=== PATIENT | female | born 1935 | race Caucasian/White ===

== ENCOUNTER 2022-10-13 10:48 | Emergency (ER) | payer MEDICARE, SELFPAY ==
[2022-10-13 11:03] VITALS: BP 143/52; BP 168/72; PULSE 92; PULSE 98; RESP 16; TEMP 37.3; O2SAT 100; O2SAT 99; BMI 26.2
--- OUTSIDE RECORDS SUMMARY | 2022-10-13 11:38 | XMS_ITS | Continuity of Care Document ---
Author Name Unknown Organization [facility] Address Unknown Care Team Providers Care Power Plant Assistant Name Role Phone Andres FERNÁNDEZ, Alex Lewis Primary Care Physician Encounter [facility] Date(s): 01/06/22 - 02/05/22 [facility] Allergies, Adverse Reactions, Alerts No Known Allergies
--- OUTSIDE RECORDS SUMMARY | 2022-10-13 11:38 | XMS_ITS | Continuity of Care Document ---
Author Name Unknown Organization [facility] Address [address] [facility] [address] [facility], [address], [address] [place] [id number] Care Team Providers Care Filtration Operator Name Role Phone Alex Campos MD Primary Care Physician Encounter [facility] Date(s): 01/10/22 - 03/22/22 [facility] [address] [facility] [address] [facility], [address]rd Floor, [address] [place] [id number]- Attending Physician: Elisa Oviedo MD Admitting Physician: Elisa Oviedo MD Referring Physician: Alex Campos MD Allergies, Adverse Reactions, Alerts No Known Allergies Patient Care team information Personnel Name: Alex Campos MD Address: Address: [address] [place] [id number]
[2022-10-13 12:40] VITALS: BP 146/53; PULSE 74; RESP 12; TEMP 37.1; O2SAT 100
--- NOTE | 2022-10-13 12:40 | PC.NURSE ---
patient talking in full complete sentences. no SOB. NSR on the monitor. call kuhn within reach
--- NOTE | 2022-10-13 13:01 | ED_ITS ---
HPI - General Adult General Chief complaint: Allergic Reaction Stated complaint: Bee sting allergic reaction per EMS Time Seen by Provider: 10/13/22 12:06 Source: patient Mode of arrival: ambulatory Limitations: no limitations History of Present Illness HPI narrative: 87-year-old female presents to ED for evaluation after bee sting. Patient states she has slight tingling in her lips that resolved immediately after taking 2 injections of epinephryine. Patient denies any actual swelling of lips, tongue, shortness of breath, sensation of throat closing, rash, hives, eye swelling, fever, or chills. Patient denies any chest pain, shortness of breath, abdominal pain, neck swelling, fever, chills, weakness, dizziness, or any other concerning symptoms. Related Data Previous Rx's Medication Instructions Recorded diphenhydramine HCl 25 mg capsule 25 mg PO TID PRN allergic reaction 10/13/22 (Benadryl) 7 days #21 caps famotidine 20 mg tablet (Pepcid) 20 mg PO BID 7 days #14 tabs 10/13/22 prednisone 20 mg tablet 40 mg PO DAILY 5 days #10 tabs 10/13/22 Allergies Allergy/AdvReac Type Severity Reaction Status Date / Time bee pollen [bee stings] Allergy Anaphylaxis Verified 10/13/22 13:05 Review of Systems Review of Systems: Evaluation for bee sting presently asymptomatic Yes all other systems are reviewed and are negative [facility] Social History Social History Advance Directives: Yes Advance Directives Information Provided: No Advance Directives on File: No Physical Exam ED Vital Signs: Vital Signs - 24 hr 10/13/22 11:03 10/13/22 12:40 Temperature 99.2 F 98.8 F Pulse Rate 92 74 Respiratory Rate 16 12 Blood Pressure 143/52 H 146/53 H Pulse Oximetry 99 100 Oxygen Delivery Method Room Air Room Air BMI result Body Mass Index 26.2 Const General: cooperative, healthy appearing, comfortable, no acute distress, well developed, alert, awake and Physically active Orientation/consciousness: oriented to person, oriented to place, oriented to time and patient oriented x3 HENMT Other: Negative for lip swelling, tongue swelling, or uvular swelling. Patient speaking in full sentences negative for any drooling, change in voice, or hoarseness. Negative for hives on face or rest of body. Patient well-ap pearing. O2 saturation normal to 100% maintained on room air Head: Yes normal to inspection, Yes No palpable skull fracture present, Yes normocephalic and Yes atraumatic Throat: Yes posterior oropharynx normal, Yes tonsils normal and Yes uvula midline Eyes General: appearance normal, both eyes and all related structures Neck Neck: Yes normal visual inspection, Yes full ROM, Yes no lymphadenopathy, Yes no meningeal signs, Yes trachea midline, Yes supple, No anterior neck swelling and No tender Chest Chest palpation & inspection: normal inspection of the chest and normal palpation of entire chest wall Resp Effort & Inspection: normal respiratory effort and able to speak in complete sentences Auscultation: clear to auscultation bilaterally Cardio Jugular venous distension: no JVD Heart sounds: S1 normal heart sound present and S2 normal heart sound present GI Inspection: Yes normal to inspection and No abdominal wall ecchymosis Palpation (GI): Soft to palpation, not firm, nontender, no guarding and not rigid General: No CVA tenderness and Yes no CVA tenderness Back/Spine/Pelvis Back: no CVA tenderness, No CVA tenderness and No back tenderness Skin General skin exam: no rashes or lesions noted and elasticity normal Neuro General: oriented to person, oriented to place, oriented to time, patient oriented x3, gait normal, tone normal, moves all extremities, Normal light touch and pain sensation, no meningeal signs, no focal motor deficits, CN's II-XI intact bilaterally and normal sensation to monofilament Extrem Other: bilateral lower extremities negative for any swelling, pitting edmea, or calf tenderness. General: Yes normal to inspection and Yes full ROM Psych Appearance: grossly normal, well kempt and not disheveled Course Course Course Narrative: Patient well-appearing. Vital signs stable. Reevaluation(s) Reevaluation #1: Presently no indication of anaphylaxis. Whole-body evaluating negative for rash on body and negative signs of anaphylaxis. Due to known it has allergic and anaphylactic reaction to bee sting patient will be discharged with prednisone Benadryl and Pepcid. Negative for signs of cellulitis. Time: 16:53 Medical Decision Making Medical Decision Making [facility] Narrative: 87-year-old female presents to ED for evaluation after bee sting. Patient denies any chest pain, shortness of breath, abdominal pain, swelling of extremities lips, hives, swelling, or sensation of throat closing. No further intervention needed. Vital signs stable. Differential Diagnosis Differential Diagnoses: The differential diagnosis associated with the presentation includes (Allergic reaction, cellulitis, anaphylaxis,) Admission/Observation Consideration of admission/observation: Escalation of care including admission/observation considered Prescription Management I considered prescription management with: Other (Prednisone, Benadryl, and Pepcid) Discharge Plan Discharge Clinical Impression: Bee sting, Allergic reaction to bee sting Patient Disposition: Home, Self-Care Instructions: Insect Bite or Sting (ED), General Allergic Reaction (ED) Additional Instructions: Return to the ED immediately if he have lip swelling, tongue swelling, shortness of breath, sensation of throat closing, fever, chills, rash, hives, redness, or any other concerning symptoms. Use your EpiPen if needed for anyphylaxis. You will be given Benadryl prednisone and Pepcid to prevent further reaction. Please follow-up with primary care provider Prescriptions: New prednisone 20 mg tablet 40 mg PO DAILY 5 Days Qty: 10 0RF famotidine [Pepcid] 20 mg tablet 20 mg PO BID 7 Days Qty: 14 0RF diphenhydramine HCl [Benadryl] 25 mg capsule 25 mg PO TID PRN (Reason: allergic reaction) 7 Days Qty: 21 0RF Rx Instructions: side effect is drowsiness. Interventions: ED Discharge Assessment Last Done: 10/13/22 13:12 Discharge Date/Time: 10/13/22 13:12 Print Language: Thai
== END 2022-10-13 13:12 | disposition home or self-care (01) ==
PROVIDERS: Emergency Provider Emergency Medicine Emergency Medical Services
DX: T63.441A Toxic effect of venom of bees, accidental (unintentional), initial encounter (principal); Y92.9 Unspecified place or not applicable; Z79.899 Other long term (current) drug therapy
CPT/HCPCS: 99283

== ENCOUNTER 2023-12-17 10:56 | Outpatient (AMB) | payer MEDICARE, SELFPAY ==
[2023-12-17 11:05] VITALS: BP 114/58; PULSE 73; O2SAT 98
--- NOTE | 2023-12-17 11:05 | A.OFFVIS_ITS ---
Vital Signs 12/17/23 11:05 Height 5 ft 2 in BMI Reason not done Patient refused/unable BP 114/58 L Blood Pressure Location Rt brachial Position Sitting Pulse 73 Pulse Source Pulse Oximeter Pulse Oximetry (%) 98 Oxygen Delivery Method Room Air Intake Visit Reasons: RA/CM Intake Note: New pt presents today for RA consult, referred by Dafne Lipscomb. Previously followed by Dr Wilson, saw him last week. She is here because she is not happy with the care she is receiving. Occasional hand pain and swelling. Has tried MTX, hydroxychloroquine, Enbrel, leflunomide, injections, Rituximab x1 (May 2023) [employer] Required: No Accompanied by: Self / Same As Patient Allergies bee pollen [bee stings] Allergy (Verified 10/13/22 13:05) Anaphylaxis naproxen Adverse Reaction (Verified 12/17/23 11:09) Stomach pain silver [From Tegaderm AG Mesh] Adverse Reaction (Verified 12/17/23 11:09) Blisters Medication List - Last Reconciled 12/17/23 by Alma Bills MD levothyroxine 25mcg 5days a week, 50mcg 2 days a week orally; simvastatin 10 mg PO BEDTIME HPI Comments Details: This is an 88-year-old female with seropositive RA who presents as a new patient. Seeking a 2nd opinion. She states that she was diagnosed with RA in the late . She was on hydroxychloroquine for years much improvement. She would get intermittent courses of prednisone. She then saw another reinstatement clerk in [place] who recommended Enbrel. Enbrel was quite effective. She was on it for more than a decade until she developed lymphoma approximately 2013, she received R-CHOP treatment. She was in remission from her RA for about a decade after that treatment. Her RA came back approximately . 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 Oral methotrexate and oral leflunomide both caused diarrhea. She received 1 dose of rituximab and 30 minutes into the infusion she felt her throat was closing up. She was then switched to subcutaneous methotrexate since 07/2023. She states that it had worked very well. About 6 weeks ago patient had COVID infection but it lasted for a few weeks. Patient called reinstatement clerk office and they suggested that she hold methotrexate until the infection resolves. Her COVID infection has resolved. She has been off her methotrexate for approximately 6 weeks now without recurrence of symptoms. Of note she gets intra-articular injections for her shoulder osteoarthritis periodically as well. She has no complaints today except for intermittent fecal urgency and incontinence, it happens about once every 2 weeks. [facility] Medical History Felty syndrome Lymphoma Seropositive rheumatoid arthritis Surgical History History of oophorectomy, unilateral History of cholecystectomy Social History Alcohol intake: current Alcohol intake frequency: does not drink Patient Tobacco Use Status: Former Tobacco user Review of Systems Const Denies weight gain and Denies weight loss Musc Denies arthralgias, Denies joint swelling and Denies stiffness Physical Exam Vital Signs: Last Vital Signs Pulse 73 12/17/23 11:05 BP 114/58 L 12/17/23 11:05 Pulse Ox 98 12/17/23 11:05 Oxygen Delivery Method Room Air 12/17/23 11:05 Const General: cooperative, healthy appearing and comfortable Nutritional Appearance: average body habitus HEENT Head: Yes normocephalic and Yes atraumatic Mouth: moist mucous membranes Resp Effort & Inspection: normal respiratory effort and able to speak in complete sentences Cardio Rate: regular rate Rhythm: regular rhythm Extrem Other: No active synovitis Normal nailfold capillaroscopy No deformities noted Patient can not fully extend her elbows, (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) No ankle swelling or tenderness Normal range of motion of knees without pain Normal range of motion of shoulders Assessment & Plan Assessment & Plan (1) Seropositive rheumatoid arthritis: Comment: +++CCP +RF dx approx 1994, complicated by Felty's (?2021) Failed HCQ took it for years prednisone on & off years Enbrel about 2004 very effective Etanercept Dc'd at time of Lymphoma dx Got R-CHOP 2013 disease was in remission until approx 2021 MTX 11/2022-12/2022 not tolerated d.t severe diarrhea Leflunomide 03/2023 not tolerated due to severe diarrhea Ritux X 1 (05/2023) hives & pruritic throat 30 min into infusion Trial SC MTX 07/2023 effectiv Code(s): M05.9 - Rheumatoid arthritis with rheumatoid factor, unspecified Category: Medical Plan: This is an 88-year-old female with seropositive RA who presents for a 2nd opinion. Patient been off her methotrexate for 6 weeks now as she had a COVID infection. Her COVID infection cleared up. She does not have any active synovitis on exam. I had a long conversation with patient today. Discussed nature of RA and different treatment strategies, discussed Felty's, discussed different DMARDs. At this time, patient will continue her care with Dr. Wilson Follow-up as needed Plan I spent 47 minutes reviewing patient's chart, evaluating patient, counseling patient and documenting in the chart Coding Level of Care Code New Pt Level 4 (60707) Diagnoses Seropositive rheumatoid arthritis M05.9
== END 2023-12-17 11:48 | disposition home or self-care (01) ==
PROVIDERS: Visit Provider Student in an Organized Health Care Education/Training Program
DX: M05.79 Rheumatoid arthritis with rheumatoid factor of multiple sites without organ or systems involvement (principal)
CPT/HCPCS: 99204

== ENCOUNTER → 2023-12-17 10:56 | Outpatient (BNVA) | payer MEDICARE, SELFPAY | PROVIDERS: Visit Provider Student in an Organized Health Care Education/Training Program | DX: M05.9 Rheumatoid arthritis with rheumatoid factor, unspecified (principal) | CPT/HCPCS: 99202 ==

== ENCOUNTER 2024-07-05 09:34 | Outpatient (AMB) | payer MEDICARE, SELFPAY ==
--- NOTE | 2024-07-05 12:17 | MHC.OFFWIV ---
Intake Vital Signs 07/05/24 12:19 Weight 138 lb BP 130/76 Blood Pressure Location Lt brachial Position Sitting Pulse 77 Pulse Source Pulse Oximeter Pulse Oximetry (%) 96 Oxygen Delivery Method Room Air Intake Visit Reasons: ORACLE ARCHITECT LT ear ache now causing head tenderness Intake Note: Patient here for headache/sharp pain on left side of head which started afternoon. Patient Tobacco Use Status: Former Tobacco user Allergies bee pollen [bee stings] Allergy (Verified 07/05/24 12:19) Anaphylaxis naproxen Adverse Reaction (Verified 07/05/24 12:19) Stomach pain silver [From Tegaderm AG Mesh] Adverse Reaction (Verified 07/05/24 12:19) Blisters Do you need a note to return to daycare/school/sports/work: No HPI ORACLE ARCHITECT LT ear ache now causing head tenderness HPI Details Patient is an 89-year-old female with history of seropositive rheumatoid arthritis who comes to the walk-in clinic complaining of 2 days of acute intermittent left sharp temporal and sphenoid and parietal areas scalp/headache pain, which started 2 days ago. She reports that she felt like the symptoms occurred when the wind blew across the right side of her face and ear. She reports that it feels like nerve pain, and she has never had it before. Reviewed past medical history with the patient. She was treated by her manager retail store yesterday, who did a treatment to her skin and caused the redness and scaling visible. She reports that she flew back from traveling to [facility] about 2 months ago, and had no issues to the ears while she was on vacation or since then. She denies any recent upper respiratory infection or other associated symptoms. No current pain, and no obvious associated rash, acute joint swelling, fever chills, weakness or vertigo or dizziness, myalgias or malaise, discharge from the ear, hearing changes, neck pain or back pain, vision changes, severe sore throat, difficulty eating, numbness or tingling, unsteady gait, memory changes, slurred speech, difficulty concentrating, difficulty walking, nausea vomiting or diarrhea, postnasal drip, runny nose, cough, shortness of breath or chest pain, or other significant associated symptoms. [facility] Medical History Felty syndrome Lymphoma Seropositive rheumatoid arthritis Surgical History History of oophorectomy, unilateral History of cholecystectomy Social History Alcohol intake: current Alcohol intake frequency: does not drink Patient Tobacco Use Status: Former Tobacco user Review of Systems Const All systems reviewed & are unremarkable except as noted in HPI and below ENT Reports Normal hearing present Neuro Reports Normal hearing present, Denies Abnormal speech present and Denies confusion Psych Denies confusion Physical Exam Vital Signs: Last Vital Signs Pulse 77 07/05/24 12:19 BP 130/76 07/05/24 12:19 Pulse Ox 96 07/05/24 12:19 Oxygen Delivery Method Room Air 07/05/24 12:19 Const General: cooperative, healthy appearing, comfortable, no acute distress, alert, awake, Physically active and well groomed; No anxious, confusion, diaphoretic, ill appearing, intoxicated appearing, poor hygiene or tired appearing Nutritional Appearance: average body habitus Orientation/consciousness: patient oriented x3 and No confusion HEENT Head: Yes normal to inspection, Yes normocephalic and Yes atraumatic Ears: hearing grossly normal bilaterally, external ears normal, EAC's not normal (Long and curved bilaterally, difficult to visualize straight on), Abnormal EAC present (Left canal partial impaction) excessive cerumen, edema and EAC tenderness; no foreign body and no otic discharge and TM abnormal General nose exam: Normal external nose present, Normal nares present, No nasal polyps present, Normal nasal mucous membranes and turbinates present, Normal septum present and No nasal discharge present Face and sinus: Yes normal facial exam, Yes sinuses nontender and Yes face symmetric Mouth: Normal oral and palatal mucosa present, lip normal and tongue normal Throat: Yes posterior oropharynx normal, Yes abnormal tonsil (mildly erythematous bilaterally), No peritonsillar mass, No postnasal drainage, No uvular edema and No cobblestoning Eyes General: appearance normal, both eyes and all related structures Pupils: Equal, round and reactive pupils present EOM: No Nystagmus present Neck Neck: Yes normal visual inspection, Yes full ROM, Yes no lymphadenopathy, Yes trachea midline, Yes supple and No anterior neck swelling Chest Chest palpation & inspection: normal palpation of entire chest wall Resp Effort & Inspection: normal respiratory effort, able to speak in complete sentences, no audible wheezes, no cough, no grunting, not labored, no nasal flaring, no retractions and symmetric chest movement Cardio Rate: regular rate Skin Other: Skin on her face is scaly, erythematous and flaking and scattered areas. Otherwise skin is Good color, warm and dry Neuro General: patient oriented x3 and No confusion Cranial nerves: Yes CN's II-XII intact bilaterally, Yes Facial sensation intact/muscles of mastication intact, Yes Equal, round and reactive pupils present, Yes Normal accommodation reflex present, Yes Bilaterally intact EOM present, Yes Nystagmus not present, Yes Normal facial strength present, Yes Midline tongue present, Yes Symmetric palate elevation present, Yes Normal hearing present, Yes Ability to bilaterally rotate head present, Yes Ability to bilaterally elevate shoulders present and No Nystagmus present Cognition (Neuro): normal cognition Speech: No Abnormal speech present Gait exam (Neuro): not antalgic and not ataxic Motor exam (neuro): 5/5 motor strength present throughout, Pronator motor function not present and no tremor noted Psych Appearance: grossly normal Mental Status: mental status grossly normal Speech and movement: Normal speech and movement present Affect: normal affect Attitude: cooperative Thought process: Normal thought process present Insight: Good insight present (Psych) Judgement: Good judgement present (Psych) Office Procedures Cerumen Removal Details: Patient had scant amount of cerumen to the right ear, which was removed for enhanced visibility to the tympanic membrane. It was dark, and landmarks difficult to visualize. On the left side, there was excessive cerumen, which was also removed with otoscope and curette. She had slight abrasion to the external ear with cerumen removal, and some maceration and bleeding and transient pain to the 06:00 o'clock position. Left tympanic membrane is bulging and there is haziness with difficulty of the landmarks on that side also. No apparent ruptured membrane. From which ear canal was the cerumen removed: bilateral Removal: otoscope w/curette Notes: patient tolerated procedure well and ear canal clear [id number] Wax Removal by Spoon/Curette Assessment & Plan Assessment & Plan (1) Otitis media: Code(s): H66.90 - Otitis media, unspecified, unspecified ear Qualifiers: Chronicity: acute Laterality: left Otitis media type: suppurative Recurrence: non-recurrent Spontaneous tympanic membrane rupture: without spontaneous rupture Qualified Code(s): H66.002 - Acute suppurative otitis media without spontaneous rupture of ear drum, left ear (2) Impacted cerumen of left ear: Code(s): H61.22 - Impacted cerumen, left ear (3) Abrasion of ear canal: Code(s): S00.419A - Abrasion of unspecified ear, initial encounter Qualifiers: Encounter type: initial encounter Laterality: left Qualified Code(s): S00.412A - Abrasion of left ear, initial encounter Plan Patient is a 89-year-old female comes to the walk-in clinic complaining of left side facial pain, sometimes to the left episcopalian and sphenoid area, and at times to left upper scalp over the parietal area. She states that the pain is sharp and quick and resolves spontaneously. She has been having it intermittently for the last 2 days, especially noticeable when the wind blew over the left side of her face and ear while she was outside yesterday. She reports that it feels like nerve pain, and she has never had it before. She was treated by her manager retail store yesterday, who did a treatment to her skin and caused the redness and scaling visible. She reports that she flew back from traveling to [facility] about 2 months ago, and had no issues to the ears while she was on vacation or since then. She denies any recent upper respiratory infection or other associated symptoms. Her left ear canal does have a cerumen obstruction, and after it was removed with curette, she had some maceration, bleeding and debris to the external canal, about the 6 o'clock position. I think she was developing an external otitis media from the cerumen. Hydrocortisone ascetic acid solution should help heal and protect the area from further infection. She also has loss of landmarks, and dullness to the membrane, although her canals are long and the membranes are not completely visible. It is likely she developed some serous otitis after her flight, and this is progressing into otitis media. She also had treatment for skin changes to her face, which she reports was done yesterday. She states that the pain was prior to this, but it is possible that her skin treatment is aggravating or causing her symptoms. As her symptoms are intermittent however, and sharp in nature and she is worried about this being a nerve pain issue, I did write her for gabapentin for the pain. However she was not in current distress during the visit, and her episodes are very brief and resolve in between. There was no visible rash, and no neuro deficits today. No current tenderness to palpation to the left scalp or left TMJ. I do think that it is likely that her pain is due to the ear symptoms. We discussed that her symptoms were to persist worsen or change, she should follow up again at the walk-in, see her primary care physician, or go to the Emergency Department with worrisome symptoms. She is competent for outpatient follow-up. Medications: New amoxicillin-pot clavulanate 875-125 mg 1 tab PO BID 14 tabs 0RF hydrocortisone-acetic acid 1-2 % 4 drps otic (ear) left TID 10 mL 0RF 7 days gabapentin Please do not drive or do some safety sensitive duties while taking this medication 100 mg PO BID PRN 14 caps 0RF Severe pain Coding Level of Care Code Est Pt Level 4 (75850) Diagnoses Non-recurrent acute suppurative otitis media of left ear without spontaneous rupture of tympanic membrane H66.002 Chronicity: acute Laterality: left Otitis media type: suppurative Recurrence: non-recurrent Spontaneous tympanic membrane rupture: without spontaneous rupture Impacted cerumen of left ear H61.22 Abrasion of left ear canal, initial encounter S00.412A Encounter type: initial encounter Laterality: left CPT Codes Office Procedure - CPT: 52624-Kew Wax Removal by Spoon/Curette ([id number])
[2024-07-05 12:19] VITALS: BP 130/76; PULSE 77; O2SAT 96
== END 2024-07-05 13:28 | disposition home or self-care (01) ==
PROVIDERS: PCP Nurse Practitioner; Visit Provider Physician Assistant Medical
DX: H66.002 Acute suppurative otitis media without spontaneous rupture of ear drum, left ear (principal); H61.22 Impacted cerumen, left ear; S00.412A Abrasion of left ear, initial encounter

== ENCOUNTER → 2024-07-05 09:34 | Outpatient (BNVA) | payer MEDICARE, SELFPAY | PROVIDERS: PCP Nurse Practitioner; Visit Provider Physician Assistant Medical | DX: H66.002 Acute suppurative otitis media without spontaneous rupture of ear drum, left ear (principal); H61.22 Impacted cerumen, left ear; S00.412A Abrasion of left ear, initial encounter | CPT/HCPCS: 69210; 99212 ==